=== PATIENT | female | born 1970 | race Caucasian/White ===

== ENCOUNTER 2023-04-11 13:59 | Inpatient (IN) | payer OTHER ==
[2023-04-11 14:36] VITALS: BMI 38.2
[2023-04-11] MEDS ORDERED: MAG HYDROX/AL HYDROX/SIMETH 30 ML UNIT-DOSE CUP PO PRN (16:53)
[2023-04-11] MEDS ORDERED: NICOTINE POLACRILEX 2 MG LOZENGE BC PRN (16:53)
[2023-04-11] MEDS ORDERED: ACETAMINOPHEN 325 MG TABLET (FP) PO PRN (16:53)
[2023-04-11] MEDS ORDERED: MAGNESIUM HYDROX 2400MG/30ML ORAL SUSPENSION 30 ML CUP PO PRN (16:53)
[2023-04-11] MEDS ORDERED: IBUPROFEN 600 MG TABLET (FP) PO PRN (16:53)
[2023-04-11] MEDS ORDERED: NALOXONE HCL (KLOXXADO) 8 MG SPRAY NS PRN (16:53)
[2023-04-11] MEDS ORDERED: BENZONATATE 200 MG CAPSULE PO PRN (16:53)
[2023-04-11] MEDS ORDERED: cloNIDine HCL 0.1 MG TABLET PO PRN (16:53)
[2023-04-11] MEDS ORDERED: POLYETHYLENE GLYCOL (HEALTHYLAX) 3350 17 GM PACKET PO PRN (16:53)
[2023-04-11] MEDS ORDERED: DICYCLOMINE HCL 10 MG CAPSULE PO PRN (16:53)
[2023-04-11] MEDS ORDERED: NALOXONE HCL 0.4 MG/ML VIAL IM PRN (16:53)
[2023-04-11] MEDS ORDERED: guaiFENesin 600 MG TABLET.ER (FP) PO PRN (16:53)
[2023-04-11] MEDS ORDERED: methaDONE HCL 10 MG TABLET (FOR DETOX USE ONLY) PO ONE (16:53)
[2023-04-11] MEDS ORDERED: BISMUTH SUBSALICYLATE 524 MG/30 ML PO PRN (16:53)
[2023-04-11] MEDS ORDERED: BENZOCAINE/MENTHOL (CHLORASEPTIC ) LOZENGE MM PRN (16:53)
[2023-04-11] MEDS ORDERED: PROCHLORPERAZINE MALEATE 5 MG TABLET PO PRN (16:53)
[2023-04-11] MEDS: ALBUTEROL SO4 HFA INHALER IH PRN (18:07)
[2023-04-11] MEDS: ALBUTEROL SO4 2.5/IPRATROPIUM 0.5 INH SOL 3 ML VIAL.NEB. NEB PRN (21:43)
[2023-04-11] MEDS: MELATONIN 5 MG TABLETS PO SCH (22:07)
[2023-04-11] MEDS: diazePAM 5 MG TABLET PO PRN (22:07)
[2023-04-11] MEDS: THIAMINE HCL 100 MG TABLET (FP) PO SCH (22:07)
[2023-04-11] MEDS: METOPROLOL TARTRATE 25 MG TABLET (FP) PO SCH (22:07)
[2023-04-11] MEDS: APIXABAN 5 MG TABLET PO SCH (22:07)
[2023-04-11] MEDS: PATIENT'S OWN MEDICATION (NON-FORMULARY) (Budesonide/Glycopyr/Formoterol [Breztri Aerosphe IH SCH (22:09)
[2023-04-12] MEDS: ALBUTEROL SO4 HFA INHALER IH PRN ×2 (01:47→22:12)
[2023-04-12] MEDS: ALBUTEROL SO4 2.5/IPRATROPIUM 0.5 INH SOL 3 ML VIAL.NEB. NEB PRN ×3 (04:25→17:22)
[2023-04-12] MEDS: METOPROLOL TARTRATE 25 MG TABLET (FP) PO SCH ×3 (05:35→22:08)
[2023-04-12] MEDS: TORSEMIDE 20 MG TABLET (FP) PO SCH ×2 (05:35→14:15)
[2023-04-12] MEDS: INSULIN ASPART SLIDING SCALE (NOVOLOG) 1 VIAL SQ SCH ×3 (06:22→17:41)
[2023-04-12] MEDS ORDERED: INSULIN ASPART SLIDING SCALE (NOVOLOG) 1 VIAL SQ ONE ×2 (06:23→17:41)
[2023-04-12] MEDS: busPIRone HCL 10 MG TABLET (FP) PO SCH ×2 (09:00→17:37)
[2023-04-12] MEDS: FAMOTIDINE 20 MG TABLET PO SCH (10:22)
[2023-04-12] MEDS: PRENATAL VITAMINS W/ FOLIC ACID TABLET (FP) PO SCH (10:22)
[2023-04-12] MEDS: APIXABAN 5 MG TABLET PO SCH ×2 (10:23→22:08)
[2023-04-12] MEDS: LOSARTAN POTASSIUM 50 MG TABLET PO SCH (10:23)
[2023-04-12] MEDS: PATIENT'S OWN MEDICATION (NON-FORMULARY) (Budesonide/Glycopyr/Formoterol [Breztri Aerosphe IH SCH ×3 (10:25→23:21)
[2023-04-12] MEDS: diazePAM 5 MG TABLET PO PRN ×3 (10:26→19:25)
[2023-04-12] MEDS: amLODIPine BESYLATE 10 MG TABLET (FP) PO SCH (10:29)
[2023-04-12] MEDS: NICOTINE 21 MG/24 HOURS TOPICAL PATCH TD SCH (10:30)
[2023-04-12] MEDS: DULoxetine HCL 20 MG CAPSULE.DR PO SCH ×2 (10:41→17:37)
[2023-04-12 11:16] LABS: HEMATOCRIT 32.5 % (32.4-45.2); HEMOGLOBIN 10.6 GM/dL (10.7-15.3); MCH 26.6 pg (25.7-33.7); MCHC 32.5 g/dl (32.0-36.0); MEAN CELL VOLUME 81.8 fl (80-96); MEAN PLT VOLUME 8.8 fl (7.5-11.1); PLATELET COUNT 310 10^3/uL (134-434); RBC 3.97 M/mm3 (3.60-5.2); RDW 17.7 % (11.6-15.6); WHITE BLOOD COUNT 9.9 K/mm3 (4.0-10.0)
[2023-04-12 11:34] LABS: POTASSIUM 4.2 mmol/L (3.5-5.1)
[2023-04-12 11:37] LABS: BLOOD UREA NITROGEN 20.2 mg/dL (7-18)
[2023-04-12 11:39] LABS: CREATININE 0.8 mg/dL (0.55-1.3)
[2023-04-12 11:41] LABS: BILIRUBIN,TOTAL 0.2 mg/dL (0.2-1); TOT PROT 6.1 g/dl (6.4-8.2)
[2023-04-12] MEDS: GABAPENTIN 300 MG CAPSULE PO SCH ×2 (14:00→22:08)
[2023-04-12] MEDS: METHOCARBAMOL 500 MG TABLET PO PRN (17:42)
[2023-04-12] MEDS: THIAMINE HCL 100 MG TABLET (FP) PO SCH (22:08)
[2023-04-12] MEDS: MELATONIN 5 MG TABLETS PO SCH (22:08)
[2023-04-12] MEDS: INSULIN (LEVEMIR) 100 UNITS/ML UNITS SQ SCH (22:11)
[2023-04-12] MEDS ORDERED: PATIENT'S OWN MEDICATION (NON-FORMULARY) (Budesonide/Glycopyr/Formoterol [Breztri Aerosphe IH SCH (22:59)
[2023-04-13] MEDS: ALBUTEROL SO4 2.5/IPRATROPIUM 0.5 INH SOL 3 ML VIAL.NEB. NEB PRN ×2 (02:20→09:58)
[2023-04-13] MEDS: GABAPENTIN 300 MG CAPSULE PO SCH ×3 (05:14→22:02)
[2023-04-13] MEDS: ALBUTEROL SO4 HFA INHALER IH PRN ×3 (05:14→20:45)
[2023-04-13] MEDS: METOPROLOL TARTRATE 25 MG TABLET (FP) PO SCH ×3 (05:14→22:02)
[2023-04-13] MEDS: TORSEMIDE 20 MG TABLET (FP) PO SCH ×2 (05:40→13:37)
[2023-04-13] MEDS: INSULIN ASPART SLIDING SCALE (NOVOLOG) 1 VIAL SQ SCH ×3 (06:14→16:28)
[2023-04-13] MEDS ORDERED: INSULIN ASPART SLIDING SCALE (NOVOLOG) 1 VIAL SQ ONE (06:23)
[2023-04-13] MEDS: busPIRone HCL 10 MG TABLET (FP) PO SCH ×2 (09:25→17:33)
[2023-04-13] MEDS: DULoxetine HCL 20 MG CAPSULE.DR PO SCH ×2 (09:25→17:33)
[2023-04-13] MEDS ORDERED: methaDONE HCL 10 MG TABLET (FOR DETOX USE ONLY) PO ONE (10:00)
[2023-04-13] MEDS: PRENATAL VITAMINS W/ FOLIC ACID TABLET (FP) PO SCH (10:15)
[2023-04-13] MEDS: LOSARTAN POTASSIUM 50 MG TABLET PO SCH (10:19)
[2023-04-13] MEDS: APIXABAN 5 MG TABLET PO SCH ×2 (10:20→22:02)
[2023-04-13] MEDS: amLODIPine BESYLATE 10 MG TABLET (FP) PO SCH (10:20)
[2023-04-13] MEDS: FAMOTIDINE 20 MG TABLET PO SCH (10:20)
[2023-04-13] MEDS: NICOTINE 21 MG/24 HOURS TOPICAL PATCH TD SCH (10:21)
[2023-04-13] MEDS: diazePAM 5 MG TABLET PO PRN ×3 (10:24→22:04)
[2023-04-13] MEDS: METHOCARBAMOL 500 MG TABLET PO PRN (10:25)
[2023-04-13] MEDS: PATIENT'S OWN MEDICATION (NON-FORMULARY) (Budesonide/Glycopyr/Formoterol [Breztri Aerosphe IH SCH ×3 (10:25→17:34)
[2023-04-13] MEDS ORDERED: ERGOCALCIFEROL (VIT D2) 50,000 UNIT (1.25 MG) CAPSULE PO SCH (17:00)
[2023-04-13] MEDS: THIAMINE HCL 100 MG TABLET (FP) PO SCH (22:02)
[2023-04-13] MEDS: MELATONIN 5 MG TABLETS PO SCH (22:02)
[2023-04-13] MEDS: INSULIN (LEVEMIR) 100 UNITS/ML UNITS SQ SCH (22:05)
[2023-04-14] MEDS: ALBUTEROL SO4 HFA INHALER IH PRN ×3 (01:19→18:33)
[2023-04-14] MEDS: ALBUTEROL SO4 2.5/IPRATROPIUM 0.5 INH SOL 3 ML VIAL.NEB. NEB PRN ×3 (03:15→21:57)
[2023-04-14] MEDS: METOPROLOL TARTRATE 25 MG TABLET (FP) PO SCH ×3 (05:11→22:14)
[2023-04-14] MEDS: GABAPENTIN 300 MG CAPSULE PO SCH ×3 (05:14→22:14)
[2023-04-14] MEDS: TORSEMIDE 20 MG TABLET (FP) PO SCH ×2 (05:14→14:22)
[2023-04-14] MEDS: INSULIN ASPART SLIDING SCALE (NOVOLOG) 1 VIAL SQ SCH ×3 (06:31→17:30)
[2023-04-14] MEDS: amLODIPine BESYLATE 10 MG TABLET (FP) PO SCH (09:15)
[2023-04-14] MEDS: PRENATAL VITAMINS W/ FOLIC ACID TABLET (FP) PO SCH (09:15)
[2023-04-14] MEDS: LOSARTAN POTASSIUM 50 MG TABLET PO SCH (09:15)
[2023-04-14] MEDS: DULoxetine HCL 20 MG CAPSULE.DR PO SCH ×2 (09:15→17:29)
[2023-04-14] MEDS: busPIRone HCL 10 MG TABLET (FP) PO SCH ×2 (09:15→17:29)
[2023-04-14] MEDS: APIXABAN 5 MG TABLET PO SCH ×2 (09:16→22:14)
[2023-04-14] MEDS: FAMOTIDINE 20 MG TABLET PO SCH (09:16)
[2023-04-14] MEDS: NICOTINE 21 MG/24 HOURS TOPICAL PATCH TD SCH (09:17)
[2023-04-14] MEDS: PATIENT'S OWN MEDICATION (NON-FORMULARY) (Budesonide/Glycopyr/Formoterol [Breztri Aerosphe IH SCH ×2 (09:18→17:32)
[2023-04-14] MEDS: diazePAM 5 MG TABLET PO PRN ×2 (09:19→13:07)
[2023-04-14] MEDS: METHOCARBAMOL 500 MG TABLET PO PRN ×2 (13:07→19:00)
[2023-04-14] MEDS: MELATONIN 5 MG TABLETS PO SCH (22:14)
[2023-04-14] MEDS: INSULIN (LEVEMIR) 100 UNITS/ML UNITS SQ SCH (22:14)
[2023-04-14] MEDS: THIAMINE HCL 100 MG TABLET (FP) PO SCH (22:14)
[2023-04-15] MEDS: ALBUTEROL SO4 HFA INHALER IH PRN ×3 (01:46→18:58)
[2023-04-15] MEDS: GABAPENTIN 300 MG CAPSULE PO SCH ×3 (05:41→21:27)
[2023-04-15] MEDS: METOPROLOL TARTRATE 25 MG TABLET (FP) PO SCH ×3 (05:41→21:26)
[2023-04-15] MEDS: TORSEMIDE 20 MG TABLET (FP) PO SCH ×2 (05:41→13:46)
[2023-04-15] MEDS: ALBUTEROL SO4 2.5/IPRATROPIUM 0.5 INH SOL 3 ML VIAL.NEB. NEB PRN ×3 (06:12→21:21)
[2023-04-15] MEDS: INSULIN ASPART SLIDING SCALE (NOVOLOG) 1 VIAL SQ SCH ×3 (06:13→17:24)
[2023-04-15] MEDS: APIXABAN 5 MG TABLET PO SCH ×2 (09:50→21:26)
[2023-04-15] MEDS: busPIRone HCL 10 MG TABLET (FP) PO SCH ×2 (09:50→18:02)
[2023-04-15] MEDS: FAMOTIDINE 20 MG TABLET PO SCH (09:50)
[2023-04-15] MEDS: DULoxetine HCL 20 MG CAPSULE.DR PO SCH ×2 (09:50→18:03)
[2023-04-15] MEDS: PRENATAL VITAMINS W/ FOLIC ACID TABLET (FP) PO SCH (09:50)
[2023-04-15] MEDS: amLODIPine BESYLATE 10 MG TABLET (FP) PO SCH (09:51)
[2023-04-15] MEDS: NICOTINE 21 MG/24 HOURS TOPICAL PATCH TD SCH (09:51)
[2023-04-15] MEDS: LOSARTAN POTASSIUM 50 MG TABLET PO SCH (09:51)
[2023-04-15] MEDS: PATIENT'S OWN MEDICATION (NON-FORMULARY) (Budesonide/Glycopyr/Formoterol [Breztri Aerosphe IH SCH ×2 (09:58→18:02)
[2023-04-15] MEDS ORDERED: methaDONE HCL 10 MG TABLET (FOR DETOX USE ONLY) PO ONE (10:00)
[2023-04-15] MEDS ORDERED: diazePAM 5 MG TABLET PO ONE ×2 (12:33→20:55)
[2023-04-15] MEDS: METHOCARBAMOL 500 MG TABLET PO PRN (20:14)
[2023-04-15] MEDS: INSULIN (LEVEMIR) 100 UNITS/ML UNITS SQ SCH (21:27)
[2023-04-15] MEDS: THIAMINE HCL 100 MG TABLET (FP) PO SCH (21:27)
[2023-04-15] MEDS: MELATONIN 5 MG TABLETS PO SCH (21:31)
[2023-04-16] MEDS: ALBUTEROL SO4 HFA INHALER IH PRN ×2 (03:14→09:10)
[2023-04-16] MEDS: TORSEMIDE 20 MG TABLET (FP) PO SCH ×2 (06:03→13:36)
[2023-04-16] MEDS: GABAPENTIN 300 MG CAPSULE PO SCH ×2 (06:03→13:37)
[2023-04-16] MEDS: METOPROLOL TARTRATE 25 MG TABLET (FP) PO SCH ×2 (06:03→13:35)
[2023-04-16] MEDS: ALBUTEROL SO4 2.5/IPRATROPIUM 0.5 INH SOL 3 ML VIAL.NEB. NEB PRN ×2 (06:33→13:57)
[2023-04-16] MEDS ORDERED: INSULIN ASPART SLIDING SCALE (NOVOLOG) 1 VIAL SQ ONE (06:35)
[2023-04-16] MEDS: INSULIN ASPART SLIDING SCALE (NOVOLOG) 1 VIAL SQ SCH ×2 (07:54→11:33)
[2023-04-16] MEDS: PATIENT'S OWN MEDICATION (NON-FORMULARY) (Budesonide/Glycopyr/Formoterol [Breztri Aerosphe IH SCH (09:11)
[2023-04-16 09:39] VITALS: RESP 20
[2023-04-16] MEDS: DULoxetine HCL 20 MG CAPSULE.DR PO SCH (09:48)
[2023-04-16] MEDS: APIXABAN 5 MG TABLET PO SCH (09:49)
[2023-04-16] MEDS: busPIRone HCL 10 MG TABLET (FP) PO SCH (09:49)
[2023-04-16] MEDS: NICOTINE 21 MG/24 HOURS TOPICAL PATCH TD SCH (09:49)
[2023-04-16] MEDS: FAMOTIDINE 20 MG TABLET PO SCH (09:49)
[2023-04-16] MEDS: PRENATAL VITAMINS W/ FOLIC ACID TABLET (FP) PO SCH (09:50)
[2023-04-16] MEDS: LOSARTAN POTASSIUM 50 MG TABLET PO SCH (09:50)
[2023-04-16] MEDS: amLODIPine BESYLATE 10 MG TABLET (FP) PO SCH (09:50)
[2023-04-16] MEDS ORDERED: diazePAM 5 MG TABLET PO ONE (11:30)
[2023-04-16 13:19] VITALS: BP 106/62; TEMP 98.6
[2023-04-16 15:08] VITALS: PULSE 95
== END 2023-04-16 14:20 | disposition other institution (70) | DRG 773 ==
LOC: YASAS 13:59 → Y3N 17:16
PROVIDERS: ADMIT Allergy & Immunology; ATTEND Allergy & Immunology
PROC: HZ2ZZZZ Detoxification Services for Substance Abuse Treatment (ICD-10-PCS; principal; 2023-04-11)
DX: F11.23 Opioid dependence with withdrawal (principal); F13.20 Sedative, hypnotic or anxiolytic dependence, uncomplicated; F17.210 Nicotine dependence, cigarettes, uncomplicated; F19.280 Other psychoactive substance dependence with psychoactive substance-induced anxiety disorder; F19.24 Other psychoactive substance dependence with psychoactive substance-induced mood disorder; F41.9 Anxiety disorder, unspecified; G47.33 Obstructive sleep apnea (adult) (pediatric); I48.0 Paroxysmal atrial fibrillation; I10 Essential (primary) hypertension; J44.9 Chronic obstructive pulmonary disease, unspecified; K21.9 Gastro-esophageal reflux disease without esophagitis; E11.59 Type 2 diabetes mellitus with other circulatory complications; Z79.4 Long term (current) use of insulin
CPT/HCPCS: 36415; 80053; 82962; 85027; 86780; 87635; 87811; 93005; 93010; 94640

== ENCOUNTER 2023-04-16 14:25 | Inpatient (IN) | payer OTHER ==
[2023-04-16] MEDS ORDERED: BENZONATATE 200 MG CAPSULE PO PRN (15:57)
[2023-04-16] MEDS ORDERED: NALOXONE HCL 0.4 MG/ML VIAL IVPUSH PRN (15:57)
[2023-04-16] MEDS ORDERED: NALOXONE HCL (KLOXXADO) 8 MG SPRAY NS PRN (15:57)
[2023-04-16] MEDS ORDERED: ACETAMINOPHEN 325 MG TABLET (FP) PO PRN (15:57)
[2023-04-16] MEDS ORDERED: MAG HYDROX/AL HYDROX/SIMETH 30 ML UNIT-DOSE CUP PO PRN (15:57)
[2023-04-16] MEDS ORDERED: BENZOCAINE/MENTHOL (CHLORASEPTIC ) LOZENGE MM PRN (15:57)
[2023-04-16] MEDS ORDERED: LOPERAMIDE HCL 2 MG CAPSULE PO PRN (15:57)
[2023-04-16] MEDS ORDERED: IBUPROFEN 600 MG TABLET (FP) PO PRN (15:57)
[2023-04-16] MEDS ORDERED: NICOTINE POLACRILEX 4 MG GUM BUC PRN (15:57)
[2023-04-16] MEDS ORDERED: METHOCARBAMOL 500 MG TABLET PO PRN (15:57)
[2023-04-16] MEDS ORDERED: IBUPROFEN 400 MG TABLET (FP) PO PRN (15:57)
[2023-04-16] MEDS ORDERED: AMMONIUM LACTATE 12% LOTION 225 GM BOTTLE TP PRN (15:57)
[2023-04-16] MEDS ORDERED: hydrOXYzine PAMOATE 25 MG CAPSULE (FP) PO PRN (15:57)
[2023-04-16] MEDS ORDERED: POLYETHYLENE GLYCOL (HEALTHYLAX) 3350 17 GM PACKET PO PRN (15:57)
[2023-04-16] MEDS ORDERED: MAGNESIUM HYDROX 2400MG/30ML ORAL SUSPENSION 30 ML CUP PO PRN (15:57)
[2023-04-16] MEDS ORDERED: guaiFENesin 600 MG TABLET.ER (FP) PO PRN (15:57)
[2023-04-16] MEDS ORDERED: ALBUTEROL SO4 HFA INHALER IH PRN (16:01)
[2023-04-16] MEDS ORDERED: INSULIN ASPART SLIDING SCALE (NOVOLOG) 1 VIAL SQ SCH (16:30)
[2023-04-16] MEDS ORDERED: INSULIN (NOVOLOG) ASPART 100 UNITS/ML 10ML VIAL ONE (16:47)
[2023-04-16] MEDS: INSULIN ASPART SLIDING SCALE (NOVOLOG) 1 VIAL SQ SCH (16:49)
[2023-04-16] MEDS ORDERED: ALBUTEROL SO4 2.5/IPRATROPIUM 0.5 INH SOL 3 ML VIAL.NEB. NEB PRN (16:49)
[2023-04-16 20:58] VITALS: BP 152/79; PULSE 109; RESP 18; TEMP 99.7
[2023-04-16] MEDS: GABAPENTIN 300 MG CAPSULE PO SCH (21:06)
[2023-04-16] MEDS ORDERED: THIAMINE HCL 100 MG TABLET (FP) PO SCH (22:00)
[2023-04-16] MEDS ORDERED: PATIENT'S OWN MEDICATION (NON-FORMULARY) (Insulin Lispro [Admelog Solostar] 100 UNIT/ML In SQ SCH (22:00)
[2023-04-16] MEDS ORDERED: MELATONIN 5 MG TABLETS PO SCH (22:00)
[2023-04-16] MEDS ORDERED: PATIENT'S OWN MEDICATION (NON-FORMULARY) (Budesonide/Glycopyr/Formoterol [Breztri Aerosphe IH SCH (22:00)
[2023-04-16] MEDS ORDERED: INSULIN (LEVEMIR) 100 UNITS/ML UNITS SQ SCH (22:00)
[2023-04-16] MEDS ORDERED: APIXABAN 5 MG TABLET PO SCH (22:00)
[2023-04-16] MEDS ORDERED: METOPROLOL TARTRATE 25 MG TABLET (FP) PO SCH (22:00)
[2023-04-16] MEDS ORDERED: TORSEMIDE 20 MG TABLET (FP) PO SCH (22:00)
[2023-04-17] MEDS ORDERED: NICOTINE 21 MG/24 HOURS TOPICAL PATCH TD SCH (10:00)
[2023-04-17] MEDS ORDERED: FAMOTIDINE 20 MG TABLET PO SCH (10:00)
[2023-04-17] MEDS ORDERED: PRENATAL VITAMINS W/ FOLIC ACID TABLET (FP) PO SCH (10:00)
[2023-04-17] MEDS ORDERED: LOSARTAN POTASSIUM 50 MG TABLET PO SCH (10:00)
[2023-04-17] MEDS ORDERED: METOPROLOL TARTRATE 25 MG TABLET (FP) PO SCH (10:00)
[2023-04-17] MEDS ORDERED: amLODIPine BESYLATE 10 MG TABLET (FP) PO SCH (10:00)
[2023-04-17] MEDS: GABAPENTIN 300 MG CAPSULE PO SCH (10:27)
[2023-04-17] MEDS: INSULIN ASPART SLIDING SCALE (NOVOLOG) 1 VIAL SQ SCH (10:29)
[2023-04-20] MEDS ORDERED: ERGOCALCIFEROL (VIT D2) 50,000 UNIT (1.25 MG) CAPSULE PO SCH (10:00)
== END 2023-04-17 08:00 | disposition short-term general hospital (02) | DRG 772 ==
LOC: YASAS 14:25 → Y5N 14:27
PROVIDERS: ADMIT Allergy & Immunology; ATTEND Psychiatry & Neurology Pain Medicine
PROC: HZ42ZZZ Group Counseling for Substance Abuse Treatment, Cognitive-Behavioral (ICD-10-PCS; principal; 2023-04-16)
DX: F11.20 Opioid dependence, uncomplicated (principal); F17.210 Nicotine dependence, cigarettes, uncomplicated; F32.A Depression, unspecified; F41.9 Anxiety disorder, unspecified; J44.1 Chronic obstructive pulmonary disease with (acute) exacerbation; G47.33 Obstructive sleep apnea (adult) (pediatric); I10 Essential (primary) hypertension; I48.91 Unspecified atrial fibrillation; Z79.01 Long term (current) use of anticoagulants; K21.9 Gastro-esophageal reflux disease without esophagitis; E11.9 Type 2 diabetes mellitus without complications; Z79.4 Long term (current) use of insulin; R05.9 Cough, unspecified; R06.02 Shortness of breath
CPT/HCPCS: 82962; 94640

== ENCOUNTER 2023-04-16 22:54 | Inpatient (IN) | payer OTHER ==
[2023-04-17] MEDS ORDERED: ALBUTEROL SO4 2.5/IPRATROPIUM 0.5 INH SOL 3 ML VIAL.NEB. NEB ONE ×4 (00:19→20:15)
[2023-04-17] MEDS ORDERED: DEXAMETHASONE SOD PHOSPHATE 10 MG/1 ML VIAL IVPUSH ONE (00:33)
[2023-04-17] MEDS ORDERED: DEXAMETHASONE SOD PHOSPHATE 10 MG/1 ML VIAL ONE (00:41)
[2023-04-17 00:57] LABS: VENOUS O2 SATURATION 90.7 % (70-80); VENOUS PCO2 50.6 mmHg (38-52); VENOUS PH 7.401 (7.310-7.410)
[2023-04-17 01:04] LABS: BASO % 0.6 % (0-2.0); EOS % 2.2 % (0-4.5); HEMATOCRIT 29.2 % (32.4-45.2); HEMOGLOBIN 9.3 GM/dL (10.7-15.3); LYMPH % 18.4 % (8-40); MCH 25.9 pg (25.7-33.7); MEAN CELL VOLUME 81.1 fl (80-96); MEAN PLT VOLUME 8.6 fl (7.5-11.1); NEUT % 67.8 % (42.8-82.8); PLATELET COUNT 278 10^3/uL (134-434); RDW 18.2 % (11.6-15.6); WHITE BLOOD COUNT 13.4 K/mm3 (4.0-10.0)
[2023-04-17 01:18] LABS: INR 1.34 (0.83-1.09); PROTHROMBIN TIME (PATIENT) 15.5 SEC (9.7-13.0)
[2023-04-17 01:20] LABS: POTASSIUM 4.9 mmol/L (3.5-5.1)
[2023-04-17 01:21] LABS: ACTIVATED PTT 32.5 SECONDS (25.2-36.5)
[2023-04-17 01:22] LABS: BLOOD UREA NITROGEN 34.7 mg/dL (7-18); CALCIUM 8.3 mg/dL (8.5-10.1)
[2023-04-17 01:23] LABS: ALBUMIN 3.1 g/dl (3.4-5.0)
[2023-04-17 01:26] LABS: CREATININE 1.1 mg/dL (0.55-1.3)
[2023-04-17 01:27] LABS: TOT PROT 6.5 g/dl (6.4-8.2)
[2023-04-17 01:28] LABS: BILIRUBIN,TOTAL 0.3 mg/dL (0.2-1)
[2023-04-17] MEDS ORDERED: FUROSEMIDE 40 MG/4 ML INJECTABLE VIAL IVPUSH SCH (09:51)
[2023-04-17] MEDS ORDERED: ALBUTEROL SO4 HFA INHALER IH PRN (11:18)
[2023-04-17] MEDS ORDERED: SODIUM CHLORIDE 1,000 ML IV SCH (12:00)
[2023-04-17] MEDS ORDERED: APIXABAN 5 MG TABLET ONE (12:31)
[2023-04-17] MEDS ORDERED: amLODIPine BESYLATE 10 MG TABLET (FP) ONE (12:32)
[2023-04-17] MEDS ORDERED: AZITHROMYCIN IVPB 500 MG/250 ML BAG IVPB ONE (12:32)
[2023-04-17] MEDS ORDERED: LOSARTAN POTASSIUM 50 MG TABLET ONE (12:32)
[2023-04-17] MEDS ORDERED: NICOTINE 21 MG/24 HOURS TOPICAL PATCH ONE (12:32)
[2023-04-17] MEDS: APIXABAN 5 MG TABLET PO SCH ×2 (12:54→21:21)
[2023-04-17] MEDS: AZITHROMYCIN IVPB 500 MG/250 ML BAG IVPB SCH (12:54)
[2023-04-17] MEDS: INSULIN (NOVOLOG) ASPART 100 UNITS/ML 10ML VIAL SQ SCH ×3 (12:54→22:51)
[2023-04-17] MEDS: NICOTINE 21 MG/24 HOURS TOPICAL PATCH TD SCH (12:54)
[2023-04-17] MEDS: amLODIPine BESYLATE 10 MG TABLET (FP) PO SCH (12:54)
[2023-04-17] MEDS: LOSARTAN POTASSIUM 50 MG TABLET PO SCH (12:54)
[2023-04-17] MEDS ORDERED: METOPROLOL TARTRATE 25 MG TABLET (FP) ONE (13:33)
[2023-04-17] MEDS ORDERED: GABAPENTIN 300 MG CAPSULE ONE (13:33)
[2023-04-17] MEDS: METOPROLOL TARTRATE 25 MG TABLET (FP) PO SCH ×2 (13:39→21:21)
[2023-04-17] MEDS: GABAPENTIN 300 MG CAPSULE PO SCH ×2 (13:39→21:21)
[2023-04-17] MEDS: ALBUTEROL SO4 2.5/IPRATROPIUM 0.5 INH SOL 3 ML VIAL.NEB. NEB PRN ×2 (13:41→20:23)
[2023-04-17] MEDS ORDERED: ALPRAZolam 0.25 MG TABLET ONE (13:49)
[2023-04-17] MEDS ORDERED: PATIENT'S OWN MEDICATION (NON-FORMULARY) (Alprazolam [Alprazolam] 0.5 MG Tablet) PO SCH (14:00)
[2023-04-17] MEDS ORDERED: ALPRAZolam 0.25 MG TABLET PO SCH (14:00)
[2023-04-17] MEDS ORDERED: INSULIN (NOVOLOG) ASPART 100 UNITS/ML 10ML VIAL SQ ONE (16:10)
[2023-04-17] MEDS: TORSEMIDE 20 MG TABLET (FP) PO SCH (17:00)
[2023-04-17] MEDS: busPIRone HCL 10 MG TABLET (FP) PO SCH (21:21)
[2023-04-17] MEDS: ALPRAZolam 0.25 MG TABLET PO PRN (21:37)
[2023-04-17] MEDS ORDERED: INSULIN (LEVEMIR) 100 UNITS/ML UNITS SQ SCH (22:00)
[2023-04-17] MEDS ORDERED: PATIENT'S OWN MEDICATION (NON-FORMULARY) (Budesonide/Glycopyr/Formoterol [Breztri Aerosphe IH SCH (22:00)
[2023-04-17] MEDS: DULoxetine HCL 20 MG CAPSULE.DR PO SCH (22:30)
[2023-04-17] MEDS: BUDESONIDE/FORMETEROL FUMARATE 160/4.5 mcg INHALER IH SCH (22:30)
[2023-04-18] MEDS: methylPREDNISolone NA SUCC 40 MG/1 ML VIAL IVPUSH SCH ×2 (01:49→09:44)
[2023-04-18 03:13] VITALS: BMI 39.6
[2023-04-18] MEDS: TORSEMIDE 20 MG TABLET (FP) PO SCH ×2 (05:39→17:10)
[2023-04-18] MEDS: METOPROLOL TARTRATE 25 MG TABLET (FP) PO SCH ×3 (05:39→21:35)
[2023-04-18] MEDS: GABAPENTIN 300 MG CAPSULE PO SCH ×3 (05:39→21:35)
[2023-04-18] MEDS ORDERED: INSULIN (LEVEMIR) 100 UNITS/ML UNITS SQ SCH ×2 (05:49→13:08)
[2023-04-18] MEDS: INSULIN (NOVOLOG) ASPART 100 UNITS/ML 10ML VIAL SQ SCH ×6 (06:07→16:37)
[2023-04-18] MEDS: ALBUTEROL SO4 2.5/IPRATROPIUM 0.5 INH SOL 3 ML VIAL.NEB. NEB PRN ×3 (07:30→20:47)
[2023-04-18] MEDS: busPIRone HCL 10 MG TABLET (FP) PO SCH ×2 (09:43→21:35)
[2023-04-18] MEDS: FAMOTIDINE 20 MG TABLET PO SCH (09:43)
[2023-04-18] MEDS: LOSARTAN POTASSIUM 50 MG TABLET PO SCH (09:43)
[2023-04-18] MEDS: ALPRAZolam 0.25 MG TABLET PO PRN ×2 (09:43→17:10)
[2023-04-18] MEDS: NICOTINE 21 MG/24 HOURS TOPICAL PATCH TD SCH (09:43)
[2023-04-18] MEDS: APIXABAN 5 MG TABLET PO SCH ×2 (09:43→21:35)
[2023-04-18] MEDS: amLODIPine BESYLATE 10 MG TABLET (FP) PO SCH (09:43)
[2023-04-18] MEDS: DULoxetine HCL 20 MG CAPSULE.DR PO SCH ×2 (09:44→21:35)
[2023-04-18] MEDS: AZITHROMYCIN IVPB 500 MG/250 ML BAG IVPB SCH (09:44)
[2023-04-18] MEDS: BUDESONIDE/FORMETEROL FUMARATE 160/4.5 mcg INHALER IH SCH ×2 (09:45→21:36)
[2023-04-18 09:47] LABS: BASO % 0.1 % (0-2.0); HEMATOCRIT 29.5 % (32.4-45.2); HEMOGLOBIN 9.7 GM/dL (10.7-15.3); MCH 26.5 pg (25.7-33.7); MCHC 32.8 g/dl (32.0-36.0); MEAN CELL VOLUME 80.7 fl (80-96); MEAN PLT VOLUME 8.8 fl (7.5-11.1); MONO % 5.8 % (3.8-10.2); NEUT % 85.1 % (42.8-82.8); PLATELET COUNT 270 10^3/uL (134-434); RBC 3.65 M/mm3 (3.60-5.2); RDW 19.1 % (11.6-15.6); WHITE BLOOD COUNT 13.4 K/mm3 (4.0-10.0)
[2023-04-18 10:06] LABS: CHLORIDE 92 mmol/L (98-107); SODIUM 133 mmol/L (136-145)
[2023-04-18 10:08] LABS: CALCIUM 9.3 mg/dL (8.5-10.1)
[2023-04-18 10:09] LABS: ALBUMIN 3.1 g/dl (3.4-5.0); ANION GAP 9 mmol/L (4-13); BLOOD UREA NITROGEN 43.6 mg/dL (7-18); CO2 32 mmol/L (21-32); MAGNESIUM 2.3 mg/dL (1.8-2.4)
[2023-04-18 10:11] LABS: SGPT/ALT 16 U/L (13-61)
[2023-04-18 10:12] LABS: CREATININE 1.2 mg/dL (0.55-1.3); PHOSPHOROUS 3.7 mg/dL (2.5-4.9); SGOT/AST 5 U/L (15-37)
[2023-04-18 10:13] LABS: TOT PROT 6.7 g/dl (6.4-8.2)
[2023-04-18 10:14] LABS: BILIRUBIN,TOTAL 0.2 mg/dL (0.2-1)
[2023-04-18 10:15] LABS: ALK PHOS 64 U/L (45-117)
[2023-04-18 10:20] LABS: GLUCOSE,RANDOM 472 mg/dL (74-106)
[2023-04-18] MEDS: INSULIN ASPART SLIDING SCALE (NOVOLOG) 1 VIAL SQ SCH (21:39)
[2023-04-18] MEDS: INSULIN (LEVEMIR) 100 UNITS/ML UNITS SQ SCH (21:43)
[2023-04-19] MEDS: ALPRAZolam 0.25 MG TABLET PO PRN ×3 (02:47→09:33)
[2023-04-19] MEDS: ALBUTEROL SO4 2.5/IPRATROPIUM 0.5 INH SOL 3 ML VIAL.NEB. NEB PRN ×3 (02:48→13:30)
[2023-04-19] MEDS: GABAPENTIN 300 MG CAPSULE PO SCH ×2 (06:08→14:46)
[2023-04-19] MEDS: TORSEMIDE 20 MG TABLET (FP) PO SCH (06:08)
[2023-04-19] MEDS: METOPROLOL TARTRATE 25 MG TABLET (FP) PO SCH ×2 (06:08→14:46)
[2023-04-19] MEDS: INSULIN (LEVEMIR) 100 UNITS/ML UNITS SQ SCH (06:09)
[2023-04-19] MEDS: INSULIN ASPART SLIDING SCALE (NOVOLOG) 1 VIAL SQ SCH ×2 (06:13→11:34)
[2023-04-19] MEDS: INSULIN (NOVOLOG) ASPART 100 UNITS/ML 10ML VIAL SQ SCH ×2 (06:14→11:34)
[2023-04-19] MEDS: LOSARTAN POTASSIUM 50 MG TABLET PO SCH (09:29)
[2023-04-19] MEDS: amLODIPine BESYLATE 10 MG TABLET (FP) PO SCH (09:29)
[2023-04-19] MEDS: NICOTINE 21 MG/24 HOURS TOPICAL PATCH TD SCH (09:30)
[2023-04-19] MEDS: busPIRone HCL 10 MG TABLET (FP) PO SCH (09:30)
[2023-04-19] MEDS: AZITHROMYCIN IVPB 500 MG/250 ML BAG IVPB SCH (09:30)
[2023-04-19] MEDS: APIXABAN 5 MG TABLET PO SCH (09:30)
[2023-04-19] MEDS: BUDESONIDE/FORMETEROL FUMARATE 160/4.5 mcg INHALER IH SCH (09:30)
[2023-04-19] MEDS: FAMOTIDINE 20 MG TABLET PO SCH (09:30)
[2023-04-19] MEDS: DULoxetine HCL 20 MG CAPSULE.DR PO SCH (09:33)
[2023-04-19] MEDS ORDERED: predniSONE 20 MG TABLET (UD) PO SCH (10:00)
[2023-04-19 10:14] LABS: BASO % 0.2 % (0-2.0); EOS % 0.2 % (0-4.5); HEMATOCRIT 32.7 % (32.4-45.2); HEMOGLOBIN 10.6 GM/dL (10.7-15.3); LYMPH % 21.5 % (8-40); MCH 26.1 pg (25.7-33.7); MCHC 32.3 g/dl (32.0-36.0); MEAN CELL VOLUME 80.8 fl (80-96); MEAN PLT VOLUME 8.7 fl (7.5-11.1); MONO % 7.4 % (3.8-10.2); NEUT % 70.7 % (42.8-82.8); PLATELET COUNT 347 10^3/uL (134-434); RBC 4.04 M/mm3 (3.60-5.2); RDW 18.6 % (11.6-15.6); WHITE BLOOD COUNT 18.5 K/mm3 (4.0-10.0)
[2023-04-19 10:28] LABS: ALBUMIN 3.2 g/dl (3.4-5.0); CALCIUM 9.1 mg/dL (8.5-10.1)
[2023-04-19 10:29] LABS: BLOOD UREA NITROGEN 43.8 mg/dL (7-18)
[2023-04-19 10:30] LABS: CREATININE 1.2 mg/dL (0.55-1.3)
[2023-04-19 10:32] LABS: BILIRUBIN,TOTAL 0.3 mg/dL (0.2-1)
[2023-04-19 14:43] VITALS: BP 117/64; PULSE 81; RESP 18; TEMP 97.6
[2023-04-20] MEDS ORDERED: ERGOCALCIFEROL (VIT D2) 50,000 UNIT (1.25 MG) CAPSULE PO SCH (10:00)
== END 2023-04-19 16:07 | disposition other institution (70) | DRG 140 ==
LOC: JER 22:54 → JERBED 04-17 06:26 → OBSVTOIN 04-17 10:56 → J6S 04-17 20:41
PROVIDERS: ADMIT Internal Medicine; ATTEND Internal Medicine
DX: J44.1 Chronic obstructive pulmonary disease with (acute) exacerbation (principal); F41.8 Other specified anxiety disorders; E11.40 Type 2 diabetes mellitus with diabetic neuropathy, unspecified; F13.20 Sedative, hypnotic or anxiolytic dependence, uncomplicated; I48.91 Unspecified atrial fibrillation; G47.33 Obstructive sleep apnea (adult) (pediatric); E11.65 Type 2 diabetes mellitus with hyperglycemia; I10 Essential (primary) hypertension; E78.5 Hyperlipidemia, unspecified; K21.9 Gastro-esophageal reflux disease without esophagitis; E87.1 Hypo-osmolality and hyponatremia; D64.9 Anemia, unspecified; F17.210 Nicotine dependence, cigarettes, uncomplicated; E66.9 Obesity, unspecified; Z68.39 Body mass index [BMI] 39.0-39.9, adult
CPT/HCPCS: 0241U-QW; 36415; 71046-TC-FY; 80053; 82803; 82962; 83735; 84100; 84484; 85025; 85610; 85730; 93005; 93010; 94640; 99285-25; G0378; J1100

== ENCOUNTER 2023-04-19 16:08 | Inpatient (IN) | payer OTHER ==
[2023-04-19] MEDS ORDERED: MAGNESIUM HYDROX 2400MG/30ML ORAL SUSPENSION 30 ML CUP PO PRN (16:48)
[2023-04-19] MEDS ORDERED: BENZONATATE 200 MG CAPSULE PO PRN (16:48)
[2023-04-19] MEDS ORDERED: ACETAMINOPHEN 325 MG TABLET (FP) PO PRN (16:48)
[2023-04-19] MEDS ORDERED: NICOTINE POLACRILEX 2 MG GUM BUC PRN (16:48)
[2023-04-19] MEDS ORDERED: MAG HYDROX/AL HYDROX/SIMETH 30 ML UNIT-DOSE CUP PO PRN (16:48)
[2023-04-19] MEDS ORDERED: guaiFENesin 600 MG TABLET.ER (FP) PO PRN (16:48)
[2023-04-19] MEDS ORDERED: BENZOCAINE/MENTHOL (CHLORASEPTIC ) LOZENGE MM PRN (16:48)
[2023-04-19] MEDS ORDERED: NALOXONE HCL (KLOXXADO) 8 MG SPRAY NS PRN (16:48)
[2023-04-19] MEDS ORDERED: LOPERAMIDE HCL 2 MG CAPSULE PO PRN (16:48)
[2023-04-19] MEDS ORDERED: METHOCARBAMOL 500 MG TABLET PO PRN (16:48)
[2023-04-19] MEDS ORDERED: DOCUSATE SODIUM 100 MG CAPSULE (FP) PO PRN (16:48)
[2023-04-19] MEDS ORDERED: POLYETHYLENE GLYCOL (HEALTHYLAX) 3350 17 GM PACKET PO PRN (16:48)
[2023-04-19] MEDS ORDERED: P-EPHED 60MG/TRIPROLIDI 2.5MG TABLET PO PRN (16:48)
[2023-04-19] MEDS ORDERED: NALOXONE HCL 0.4 MG/ML VIAL IVPUSH PRN (16:48)
[2023-04-19] MEDS: INSULIN ASPART SLIDING SCALE (NOVOLOG) 1 VIAL SQ SCH ×2 (17:00→23:00)
[2023-04-19 17:01] VITALS: BMI 39.4
[2023-04-19] MEDS ORDERED: guaiFENesin 200 MG/10 ML 10 ML UNIT-DOSE CUPS PO PRN (17:18)
[2023-04-19] MEDS: TORSEMIDE 20 MG TABLET (FP) PO SCH (18:00)
[2023-04-19] MEDS ORDERED: ALBUTEROL SO4 HFA INHALER IH ONE (19:21)
[2023-04-19] MEDS ORDERED: busPIRone HCL 5 MG TABLET PO ONE (22:00)
[2023-04-19] MEDS ORDERED: GABAPENTIN 300 MG CAPSULE PO ONE (22:00)
[2023-04-19] MEDS: BUDESONIDE/FORMETEROL FUMARATE 160/4.5 mcg INHALER IH SCH (23:00)
[2023-04-19] MEDS: THIAMINE HCL 100 MG TABLET (FP) PO SCH (23:00)
[2023-04-19] MEDS: APIXABAN 5 MG TABLET PO SCH (23:00)
[2023-04-19] MEDS: MELATONIN 5 MG TABLETS PO SCH (23:00)
[2023-04-19] MEDS: METOPROLOL TARTRATE 25 MG TABLET (FP) PO SCH (23:00)
[2023-04-19] MEDS ORDERED: MELATONIN 5 MG TABLETS ONE (23:06)
[2023-04-20] MEDS: TORSEMIDE 20 MG TABLET (FP) PO SCH ×3 (06:46→23:03)
[2023-04-20] MEDS: METOPROLOL TARTRATE 25 MG TABLET (FP) PO SCH ×3 (06:56→21:15)
[2023-04-20] MEDS: ALBUTEROL SO4 HFA INHALER IH PRN ×3 (06:56→21:16)
[2023-04-20] MEDS ORDERED: INSULIN (NOVOLOG) ASPART 100 UNITS/ML 10ML VIAL ONE ×3 (07:47→20:56)
[2023-04-20] MEDS: INSULIN ASPART SLIDING SCALE (NOVOLOG) 1 VIAL SQ SCH ×4 (07:50→21:17)
[2023-04-20] MEDS: APIXABAN 5 MG TABLET PO SCH ×2 (09:57→21:14)
[2023-04-20] MEDS: PRENATAL VITAMINS W/ FOLIC ACID TABLET (FP) PO SCH (09:57)
[2023-04-20] MEDS: FAMOTIDINE 20 MG TABLET PO SCH (09:57)
[2023-04-20] MEDS: BUDESONIDE/FORMETEROL FUMARATE 160/4.5 mcg INHALER IH SCH ×2 (09:58→21:16)
[2023-04-20] MEDS: hydrOXYzine PAMOATE 25 MG CAPSULE (FP) PO PRN (13:24)
[2023-04-20] MEDS: GABAPENTIN 300 MG CAPSULE PO SCH ×2 (14:21→21:15)
[2023-04-20] MEDS ORDERED: ALBUTEROL SO4 2.5/IPRATROPIUM 0.5 INH SOL 3 ML VIAL.NEB. NEB ONE (18:56)
[2023-04-20] MEDS: predniSONE 20 MG TABLET (UD) PO SCH (19:23)
[2023-04-20] MEDS: THIAMINE HCL 100 MG TABLET (FP) PO SCH (21:14)
[2023-04-20] MEDS: MELATONIN 5 MG TABLETS PO SCH (21:14)
[2023-04-20] MEDS: DULoxetine HCL 20 MG CAPSULE.DR PO SCH (21:14)
[2023-04-20] MEDS: busPIRone HCL 10 MG TABLET (FP) PO SCH (21:15)
[2023-04-20] MEDS: clonazePAM 0.5 MG ODT TABLETS SL SCH (21:15)
[2023-04-21] MEDS: TORSEMIDE 20 MG TABLET (FP) PO SCH ×2 (06:26→17:29)
[2023-04-21] MEDS: METOPROLOL TARTRATE 25 MG TABLET (FP) PO SCH ×3 (06:27→21:13)
[2023-04-21] MEDS: GABAPENTIN 300 MG CAPSULE PO SCH ×3 (06:27→21:13)
[2023-04-21] MEDS: ALBUTEROL SO4 HFA INHALER IH PRN ×2 (06:31→21:19)
[2023-04-21] MEDS ORDERED: INSULIN (NOVOLOG) ASPART 100 UNITS/ML 10ML VIAL ONE (07:58)
[2023-04-21] MEDS: INSULIN ASPART SLIDING SCALE (NOVOLOG) 1 VIAL SQ SCH ×4 (07:59→21:16)
[2023-04-21] MEDS: APIXABAN 5 MG TABLET PO SCH ×2 (10:02→21:13)
[2023-04-21] MEDS: LOSARTAN POTASSIUM 50 MG TABLET PO SCH (10:02)
[2023-04-21] MEDS: busPIRone HCL 10 MG TABLET (FP) PO SCH ×2 (10:02→21:13)
[2023-04-21] MEDS: clonazePAM 0.5 MG ODT TABLETS SL SCH ×2 (10:02→21:13)
[2023-04-21] MEDS: predniSONE 20 MG TABLET (UD) PO SCH (10:02)
[2023-04-21] MEDS: FAMOTIDINE 20 MG TABLET PO SCH (10:02)
[2023-04-21] MEDS: PRENATAL VITAMINS W/ FOLIC ACID TABLET (FP) PO SCH (10:03)
[2023-04-21] MEDS: BUDESONIDE/FORMETEROL FUMARATE 160/4.5 mcg INHALER IH SCH ×2 (10:04→21:12)
[2023-04-21] MEDS: DULoxetine HCL 20 MG CAPSULE.DR PO SCH ×2 (10:04→21:13)
[2023-04-21] MEDS: MELATONIN 5 MG TABLETS PO SCH (21:13)
[2023-04-21] MEDS: THIAMINE HCL 100 MG TABLET (FP) PO SCH (21:14)
[2023-04-22] MEDS: GABAPENTIN 300 MG CAPSULE PO SCH ×3 (05:32→21:09)
[2023-04-22] MEDS: METOPROLOL TARTRATE 25 MG TABLET (FP) PO SCH ×3 (05:32→21:09)
[2023-04-22] MEDS: TORSEMIDE 20 MG TABLET (FP) PO SCH ×2 (05:34→18:02)
[2023-04-22] MEDS: INSULIN ASPART SLIDING SCALE (NOVOLOG) 1 VIAL SQ SCH ×4 (06:39→21:13)
[2023-04-22] MEDS: ALBUTEROL SO4 HFA INHALER IH PRN ×3 (06:46→20:17)
[2023-04-22] MEDS: DULoxetine HCL 20 MG CAPSULE.DR PO SCH ×2 (09:29→21:09)
[2023-04-22] MEDS: FAMOTIDINE 20 MG TABLET PO SCH (09:30)
[2023-04-22] MEDS: APIXABAN 5 MG TABLET PO SCH ×2 (09:30→21:09)
[2023-04-22] MEDS: PRENATAL VITAMINS W/ FOLIC ACID TABLET (FP) PO SCH (09:30)
[2023-04-22] MEDS: LOSARTAN POTASSIUM 50 MG TABLET PO SCH (09:30)
[2023-04-22] MEDS: busPIRone HCL 10 MG TABLET (FP) PO SCH ×2 (09:30→21:09)
[2023-04-22] MEDS: clonazePAM 0.5 MG ODT TABLETS SL SCH ×2 (09:30→21:09)
[2023-04-22] MEDS: BUDESONIDE/FORMETEROL FUMARATE 160/4.5 mcg INHALER IH SCH ×2 (09:31→21:08)
[2023-04-22] MEDS: NICOTINE 14 MG/24 HOURS TOPICAL PATCH TD SCH (12:54)
[2023-04-22] MEDS: ALBUTEROL SO4 0.083% IH SOL 2.5 MG/3 ML VIAL.NEB. NEB PRN (20:32)
[2023-04-22] MEDS: THIAMINE HCL 100 MG TABLET (FP) PO SCH (21:09)
[2023-04-22] MEDS: MELATONIN 5 MG TABLETS PO SCH (21:09)
[2023-04-23] MEDS: ALBUTEROL SO4 HFA INHALER IH PRN ×4 (02:41→18:00)
[2023-04-23] MEDS: GABAPENTIN 300 MG CAPSULE PO SCH ×3 (06:26→21:17)
[2023-04-23] MEDS: METOPROLOL TARTRATE 25 MG TABLET (FP) PO SCH ×3 (06:26→21:17)
[2023-04-23] MEDS: TORSEMIDE 20 MG TABLET (FP) PO SCH ×2 (07:39→17:55)
[2023-04-23] MEDS: INSULIN ASPART SLIDING SCALE (NOVOLOG) 1 VIAL SQ SCH ×4 (07:39→21:21)
[2023-04-23] MEDS ORDERED: INSULIN (NOVOLOG) ASPART 100 UNITS/ML 10ML VIAL ONE ×3 (07:42→16:34)
[2023-04-23] MEDS: ALBUTEROL SO4 0.083% IH SOL 2.5 MG/3 ML VIAL.NEB. NEB PRN ×2 (08:33→20:28)
[2023-04-23] MEDS: busPIRone HCL 10 MG TABLET (FP) PO SCH ×2 (09:45→21:17)
[2023-04-23] MEDS: clonazePAM 0.5 MG ODT TABLETS SL SCH ×2 (09:45→21:21)
[2023-04-23] MEDS: FAMOTIDINE 20 MG TABLET PO SCH (09:45)
[2023-04-23] MEDS: PRENATAL VITAMINS W/ FOLIC ACID TABLET (FP) PO SCH (09:45)
[2023-04-23] MEDS: BUDESONIDE/FORMETEROL FUMARATE 160/4.5 mcg INHALER IH SCH ×2 (09:46→21:18)
[2023-04-23] MEDS: DULoxetine HCL 20 MG CAPSULE.DR PO SCH ×2 (09:46→21:16)
[2023-04-23] MEDS: NICOTINE 14 MG/24 HOURS TOPICAL PATCH TD SCH (09:47)
[2023-04-23] MEDS: APIXABAN 5 MG TABLET PO SCH ×2 (09:47→21:16)
[2023-04-23] MEDS: LOSARTAN POTASSIUM 50 MG TABLET PO SCH (10:55)
[2023-04-23 20:59] VITALS: RESP 18
[2023-04-23] MEDS: SUVOREXANT 5 MG TABLET PO PRN (21:16)
[2023-04-23] MEDS: MELATONIN 5 MG TABLETS PO SCH (21:17)
[2023-04-23] MEDS: THIAMINE HCL 100 MG TABLET (FP) PO SCH (21:17)
[2023-04-24] MEDS: ALBUTEROL SO4 HFA INHALER IH PRN ×2 (05:31→19:07)
[2023-04-24] MEDS: TORSEMIDE 20 MG TABLET (FP) PO SCH ×2 (07:00→19:08)
[2023-04-24] MEDS: METOPROLOL TARTRATE 25 MG TABLET (FP) PO SCH ×3 (07:00→21:07)
[2023-04-24] MEDS: GABAPENTIN 300 MG CAPSULE PO SCH ×3 (07:00→21:08)
[2023-04-24] MEDS: INSULIN ASPART SLIDING SCALE (NOVOLOG) 1 VIAL SQ SCH ×4 (07:59→21:13)
[2023-04-24] MEDS ORDERED: INSULIN (NOVOLOG) ASPART 100 UNITS/ML 10ML VIAL ONE ×3 (08:00→16:26)
[2023-04-24] MEDS: PRENATAL VITAMINS W/ FOLIC ACID TABLET (FP) PO SCH (09:47)
[2023-04-24] MEDS: APIXABAN 5 MG TABLET PO SCH ×2 (09:48→21:08)
[2023-04-24] MEDS: FAMOTIDINE 20 MG TABLET PO SCH (09:48)
[2023-04-24] MEDS: busPIRone HCL 10 MG TABLET (FP) PO SCH ×2 (09:48→21:07)
[2023-04-24] MEDS: clonazePAM 0.5 MG ODT TABLETS SL SCH ×2 (09:48→21:07)
[2023-04-24] MEDS: BUDESONIDE/FORMETEROL FUMARATE 160/4.5 mcg INHALER IH SCH ×2 (09:48→21:06)
[2023-04-24] MEDS: LOSARTAN POTASSIUM 50 MG TABLET PO SCH (09:48)
[2023-04-24] MEDS: NICOTINE 14 MG/24 HOURS TOPICAL PATCH TD SCH (09:49)
[2023-04-24] MEDS: DULoxetine HCL 20 MG CAPSULE.DR PO SCH ×2 (09:49→21:08)
[2023-04-24] MEDS: ALBUTEROL SO4 0.083% IH SOL 2.5 MG/3 ML VIAL.NEB. NEB PRN (09:52)
[2023-04-24] MEDS: hydrOXYzine PAMOATE 25 MG CAPSULE (FP) PO PRN (16:27)
[2023-04-24] MEDS: THIAMINE HCL 100 MG TABLET (FP) PO SCH (21:08)
[2023-04-24] MEDS: SUVOREXANT 5 MG TABLET PO PRN (21:08)
[2023-04-24] MEDS: MELATONIN 5 MG TABLETS PO SCH (21:08)
[2023-04-25] MEDS: ALBUTEROL SO4 HFA INHALER IH PRN ×2 (06:21→12:50)
[2023-04-25] MEDS: TORSEMIDE 20 MG TABLET (FP) PO SCH ×2 (06:23→18:28)
[2023-04-25] MEDS: GABAPENTIN 300 MG CAPSULE PO SCH ×3 (06:23→21:24)
[2023-04-25] MEDS: INSULIN ASPART SLIDING SCALE (NOVOLOG) 1 VIAL SQ SCH ×4 (06:24→21:35)
[2023-04-25] MEDS: METOPROLOL TARTRATE 25 MG TABLET (FP) PO SCH ×3 (06:47→21:24)
[2023-04-25] MEDS: BUDESONIDE/FORMETEROL FUMARATE 160/4.5 mcg INHALER IH SCH ×2 (09:25→21:43)
[2023-04-25] MEDS: DULoxetine HCL 20 MG CAPSULE.DR PO SCH ×2 (09:25→21:24)
[2023-04-25] MEDS: FAMOTIDINE 20 MG TABLET PO SCH (09:26)
[2023-04-25] MEDS: APIXABAN 5 MG TABLET PO SCH ×2 (09:26→21:24)
[2023-04-25] MEDS: busPIRone HCL 10 MG TABLET (FP) PO SCH ×2 (09:26→21:24)
[2023-04-25] MEDS: LOSARTAN POTASSIUM 50 MG TABLET PO SCH (09:26)
[2023-04-25] MEDS: clonazePAM 0.5 MG ODT TABLETS SL SCH ×2 (09:27→21:24)
[2023-04-25] MEDS: PRENATAL VITAMINS W/ FOLIC ACID TABLET (FP) PO SCH (09:27)
[2023-04-25] MEDS: NICOTINE 14 MG/24 HOURS TOPICAL PATCH TD SCH (09:28)
[2023-04-25] MEDS: ALBUTEROL SO4 0.083% IH SOL 2.5 MG/3 ML VIAL.NEB. NEB PRN (10:49)
[2023-04-25] MEDS: hydrOXYzine PAMOATE 25 MG CAPSULE (FP) PO PRN (14:54)
[2023-04-25] MEDS ORDERED: INSULIN (NOVOLOG) ASPART 100 UNITS/ML 10ML VIAL ONE (16:33)
[2023-04-25] MEDS: THIAMINE HCL 100 MG TABLET (FP) PO SCH (21:24)
[2023-04-25] MEDS: MELATONIN 5 MG TABLETS PO SCH (21:24)
[2023-04-26] MEDS: GABAPENTIN 300 MG CAPSULE PO SCH ×2 (06:18→15:08)
[2023-04-26] MEDS: TORSEMIDE 20 MG TABLET (FP) PO SCH (06:18)
[2023-04-26] MEDS: METOPROLOL TARTRATE 25 MG TABLET (FP) PO SCH ×2 (06:18→15:08)
[2023-04-26] MEDS: ALBUTEROL SO4 HFA INHALER IH PRN (06:18)
[2023-04-26 07:20] VITALS: TEMP 97.7
[2023-04-26] MEDS: INSULIN ASPART SLIDING SCALE (NOVOLOG) 1 VIAL SQ SCH ×3 (07:39→17:34)
[2023-04-26] MEDS: NICOTINE 14 MG/24 HOURS TOPICAL PATCH TD SCH (09:49)
[2023-04-26] MEDS: BUDESONIDE/FORMETEROL FUMARATE 160/4.5 mcg INHALER IH SCH (09:52)
[2023-04-26] MEDS: busPIRone HCL 10 MG TABLET (FP) PO SCH (09:52)
[2023-04-26] MEDS: FAMOTIDINE 20 MG TABLET PO SCH (09:52)
[2023-04-26] MEDS: LOSARTAN POTASSIUM 50 MG TABLET PO SCH (09:52)
[2023-04-26] MEDS: APIXABAN 5 MG TABLET PO SCH (09:52)
[2023-04-26] MEDS: PRENATAL VITAMINS W/ FOLIC ACID TABLET (FP) PO SCH (09:53)
[2023-04-26] MEDS: DULoxetine HCL 20 MG CAPSULE.DR PO SCH (09:53)
[2023-04-26] MEDS: clonazePAM 0.5 MG ODT TABLETS SL SCH (09:54)
[2023-04-26] MEDS: ALBUTEROL SO4 0.083% IH SOL 2.5 MG/3 ML VIAL.NEB. NEB PRN (10:33)
[2023-04-26] MEDS ORDERED: LIRAGLUTIDE 0.6 MG/0.1 ML PEN.INJCTR SQ SCH (14:30)
[2023-04-26 14:38] VITALS: BP 115/76; PULSE 109
[2023-04-26] MEDS ORDERED: INSULIN GLARGINE SQ SCH (22:00)
[2023-04-26] MEDS ORDERED: INSULIN (LEVEMIR) 100 UNITS/ML UNITS SQ SCH ×2 (22:00)
[2023-04-26] MEDS ORDERED: SUVOREXANT 5 MG TABLET PO PRN (22:00)
[2023-04-27] MEDS ORDERED: amLODIPine BESYLATE 10 MG TABLET (FP) PO SCH (10:00)
== END 2023-04-26 16:30 | disposition left against medical advice (07) | DRG 770 ==
LOC: YASAS 16:08 → Y5N 17:48
PROVIDERS: ADMIT Allergy & Immunology; ATTEND Psychiatry & Neurology Pain Medicine
PROC: HZ42ZZZ Group Counseling for Substance Abuse Treatment, Cognitive-Behavioral (ICD-10-PCS; principal; 2023-04-19)
DX: F11.20 Opioid dependence, uncomplicated (principal); F13.20 Sedative, hypnotic or anxiolytic dependence, uncomplicated; F17.210 Nicotine dependence, cigarettes, uncomplicated; F19.24 Other psychoactive substance dependence with psychoactive substance-induced mood disorder; F41.8 Other specified anxiety disorders; I48.0 Paroxysmal atrial fibrillation; I10 Essential (primary) hypertension; J44.1 Chronic obstructive pulmonary disease with (acute) exacerbation; J41.1 Mucopurulent chronic bronchitis; G47.33 Obstructive sleep apnea (adult) (pediatric); E11.59 Type 2 diabetes mellitus with other circulatory complications; Z79.4 Long term (current) use of insulin; Z79.01 Long term (current) use of anticoagulants; Z62.810 Personal history of physical and sexual abuse in childhood; Z91.410 Personal history of adult physical and sexual abuse; Z63.0 Problems in relationship with spouse or partner
CPT/HCPCS: 82962; 87635; 94640